=== PATIENT | male | born 1995 | race Caucasian/White ===

== ENCOUNTER 2022-03-28 13:10 | Emergency (ER) | payer OTHER ==
[~2022-03-28] VITALS: Ht 182.9 cm; Wt 84.8 kg
[2022-03-28] MEDS ORDERED: ONDANSETRON HCL INJ 2MG/ML 2ML 2 MG/ML VIAL IV STA (13:35)
[2022-03-28] MEDS ORDERED: Morphine 4mg INJECTION 4 MG/ML INJ IV ONE (13:45)
[2022-03-28] MEDS ORDERED: Vancomycin IV 1 GM in SODIUM CHLORIDE 0.9% 250ML 250 ML IV ONE (13:45)
[2022-03-28] MEDS ORDERED: Morphine 4mg INJECTION 4 MG/ML INJ ONE (14:02)
[2022-03-28] MEDS ORDERED: SODIUM CHLORIDE 0.9% 250ML 250 ML ONE (14:02)
[2022-03-28] MEDS ORDERED: ONDANSETRON HCL INJ 2MG/ML 2ML 2 MG/ML VIAL ONE (14:02)
[2022-03-28] MEDS ORDERED: CLINDAMYCIN 600MG / 50ML 50 ML IV ONE (14:03)
[2022-03-28] MEDS ORDERED: Vancomycin IV 1 GM VIAL ONE (14:03)
[2022-03-28] MEDS ORDERED: SODIUM CHLORIDE 0.9% 1000ML 1,000 ML IV SCH (16:30)
[2022-03-28 17:26] VITALS: BP 139/88
== END 2022-03-28 17:59 | disposition other institution (70) ==
LOC: FSED 13:15
DX: R50.9 Fever, unspecified (principal); J36 Peritonsillar abscess; G40.909 Epilepsy, unspecified, not intractable, without status epilepticus; D36.10 Benign neoplasm of peripheral nerves and autonomic nervous system, unspecified; I69.398 Other sequelae of cerebral infarction; F17.210 Nicotine dependence, cigarettes, uncomplicated
CPT/HCPCS: 70486; 80053; 87040; 96374; 96375; 96376; 99284; J2270; J2405; J3370; J7030; J7050